=== PATIENT | male | born 1935 | race Caucasian/White ===

== ENCOUNTER 2017-01-05 15:20 | Outpatient (CLI) | payer MEDICARE | END 2017-01-05 15:21 | disposition home or self-care (01) | DX: R00.9 Unspecified abnormalities of heart beat (principal) ==

== ENCOUNTER 2017-02-14 06:38 | Day surgery (SDC) | payer MEDICARE ==
[~2017-02-14 06:38] MED LIST: PHENYLEPHRINE 2.5% OPHTH 2 ML DROPS ONE
[2017-02-14] MEDS ORDERED: KETOROLAC 0.45% OPHTH DROPS OPTH ONE (06:56)
[2017-02-14] MEDS ORDERED: CYCLOPENTOLATE 1% OPHTH DROPS 2 ML OPTH ONE (06:56)
[2017-02-14] MEDS ORDERED: PHENYLEPHRINE 2.5% OPHTH 2 ML DROPS OPTH ONE (06:56)
[2017-02-14] MEDS ORDERED: PROPARACAINE 0.5% OPHTH DROPS 15 ML OPTH ONE ×3 (06:56→08:22)
[2017-02-14] MEDS ORDERED: LACTATED RINGERS 500 ML IV ONE (06:59)
[2017-02-14] MEDS ORDERED: MIDAZOLAM 2 MG/2 ML VIAL IVP ONE (07:30)
[2017-02-14] MEDS ORDERED: CHONDR SULF/HYALURONATE SYRINGE IO ONE ×2 (07:47→08:22)
[2017-02-14] MEDS ORDERED: TIMOLOL 0.5% OPHTH DROPS OPTH ONE ×2 (07:47→08:22)
[2017-02-14] MEDS ORDERED: BRIMONIDINE 0.2% OPHTH DROPS 5 ML OPTH ONE ×2 (07:47→08:21)
[2017-02-14] MEDS ORDERED: EPINEPHrine 1 MG/ML AMP IVP ONE ×4 (07:47→08:22)
[2017-02-14] MEDS ORDERED: BSS/LIDOCAINE/EPINEPHRINE 1 ML SYRINGE IO ONE ×3 (07:48→08:23)
[2017-02-14] MEDS ORDERED: TRIAMCIN/MOXIFLOX/VANCO 1 ML VIAL IO ONE ×4 (07:48→08:22)
== END 2017-02-14 06:39 | disposition home or self-care (01) ==
PROC: 08RJ3JZ Replacement of Right Lens with Synthetic Substitute, Percutaneous Approach (ICD-10-PCS; principal; 2017-02-14 08:00)
DX: H25.811 Combined forms of age-related cataract, right eye (principal); I10 Essential (primary) hypertension; E78.5 Hyperlipidemia, unspecified; E07.9 Disorder of thyroid, unspecified
CPT/HCPCS: 66984; A9270; V2632

== ENCOUNTER 2020-12-27 11:16 | Outpatient (CLI) | payer MEDICARE | END 2020-12-27 11:17 | disposition short-term general hospital (02) | LOC: EMS 11:16 | DX: R00.2 Palpitations (principal); R00.0 Tachycardia, unspecified | CPT/HCPCS: A0425; A0427 ==

== ENCOUNTER 2022-07-16 15:06 | Emergency (ER) | payer MEDICARE ==
[2022-07-16 15:37] LABS: BASOPHILS % (AUTO) 0.5 %; EOSINOPHILS % (AUTO) 0.4 %; HCT - HEMATOCRIT 43.6 % (42.0-52.0); HGB - HEMOGLOBIN 14.9 g/dL (14.0-18.0); LYMPHOCYTES # (AUTO) 1.2 10^3/uL (1.5-3.5); LYMPHOCYTES % (AUTO) 14.6 %; MEAN CORPUSCULAR HGB CONC 34.2 g/dL (32.0-36.0); MEAN CORPUSCULAR VOLUME 87.9 fL (80.0-94.0); MEAN PLATELET VOLUME 10.3 fL (7.4-11.4); MONOCYTES # (AUTO) 0.7 10^3/uL (0.0-1.0); MONOCYTES % (AUTO) 8.2 %; NEUTROPHILS # (AUTO) 6.2 10^3/uL (1.5-6.6); NEUTROPHILS % (AUTO) 76.1 %; PLT - PLATELET COUNT 238 10^3/uL (130-450); RED BLOOD COUNT 4.96 10^6/uL (4.70-6.10); RED CELL DISTRIBUTION WIDTH 13.4 % (12.0-15.0); WHITE BLOOD COUNT 8.1 x10^3/uL (4.8-10.8)
[2022-07-16] MEDS ORDERED: PROPOFOL 200 MG/20 ML VIAL IVP STA (15:42)
[2022-07-16] MEDS ORDERED: SODIUM CHLORIDE 0.9% 1,000 ML IV STA (15:42)
--- NOTE | 2022-07-16 15:43 | ED Physician Documentation ---
History of Present Illness - Stated complaint Stated Complaint: RAPID HEART - Chief complaint Chief Complaint: Cardiac - History obtained from History obtained from: Patient - History of Present Illness Timing: Today Pain level max: 0 Pain level now: 0 - Additonal information Additional information: 86-year-old male presents to the emergency department with a rapid heart rate today. Has a history of atrial fibrillation. He went to the walk-in clinic and his heart rate was approximately 130. He took an extra dose of metoprolol earlier today. He states his heart rate is still elevated. No chest pain. No shortness of breath. No nausea or vomiting. No abdominal pain. Otherwise asymptomatic. Patient is on Eliquis. Review of Systems Ten Systems: 10 systems reviewed and negative Constitutional: denies: Fever, Chills Throat: denies: Sore throat Cardiac: denies: Chest pain / pressure Respiratory: denies: Dyspnea, Cough GI: denies: Nausea, Vomiting, Diarrhea Skin: denies: Rash Musculoskeletal: denies: Neck pain, Back pain Neurologic: denies: Headache PD PAST MEDICAL HISTORY - Past Medical History Past Medical History: Yes Cardiovascular: Hypertension, Arrhythmia Respiratory: None Endocrine/Autoimmune: HyPOthyroidism GI: None : Benign prostate hypertrophy HEENT: Chronic vision loss Psych: None Musculoskeletal: Osteoarthritis Derm: None - Past Surgical History General: Appendectomy, Other Neuro: Other HEENT: Cataracts - Present Medications Home Medications: Ambulatory Orders Medication Instructions Recorded Confirmed Cyanocobalamin (Vitamin B-12) 1,000 mcg PO DAILY 02/13/17 02/14/17 [Vitamin B-12] Doxazosin [Cardura] 12 mg PO DAILY 02/13/17 02/14/17 Finasteride [Proscar] 5 mg PO DAILY 02/13/17 02/14/17 Levothyroxine [Synthroid] 100 mcg PO QDAC 02/13/17 02/14/17 Lisinopril [Zestril] 2.5 mg PO DAILY 02/13/17 02/14/17 Multivit-Min/FA/Lycopen/Lutein 1 tab PO DAILY 02/13/17 02/14/17 [Centrum Silver Men Tablet] Potassium Chloride [Micro-K] 10 meq PO DAILY 02/13/17 02/14/17 hydroCHLOROthiazide 25 mg PO DAILY 02/13/17 02/14/17 [Hydrochlorothiazide] - Allergies Allergies/Adverse Reactions: Allergies Allergy/AdvReac Type Severity Reaction Status Date / Time Sulfa (Sulfonamide Allergy Rash Verified 07/16/22 15:23 Antibiotics) - Social History Does the pt smoke?: No Smoking Status: Never smoker PD ED PE NORMAL - Vitals Vital signs reviewed: Yes - General General: Alert and oriented X 3, No acute distress - HEENT HEENT: Moist mucous membranes - Neck Neck: Supple, no meningeal sign - Cardiac Cardiac: Other (irregular, tachycardic) - Respiratory Respiratory: No respiratory distress, Clear bilaterally - Abdomen Abdomen: Soft, Non tender, Non distended - Derm Derm: Warm and dry - Extremities Extremities: No edema, No calf tenderness / cord - Neuro Neuro: Alert and oriented X 3 - Psych Psych: Normal mood, Normal affect Results - Vitals Vitals: Vital Signs - 24 hr 07/16/22 07/16/22 07/16/22 15:19 15:23 15:53 Temperature 35.8 C L 36.5 C Heart Rate 138 H 138 H 88 Respiratory 20 20 16 Rate Blood Pressure 87/66 L 87/66 L 145/99 H O2 Saturation 96 96 95 If not protocol 1 : Oxygen Flow, liters/minute 07/16/22 07/16/22 15:59 16:21 Temperature 36.5 C Heart Rate 130 H 83 Respiratory 18 14 Rate Blood Pressure 104/76 145/90 H O2 Saturation 97 98 If not protocol : Oxygen Flow, liters/minute Oxygen O2 Source Room air - EKG (time done) 1602 Rate: Rate (enter#) (87) Rhythm: NSR [place]: Normal Intervals: Normal RI QRS: Normal Ischemia: Non specific changes 1509 Rate: Rate (enter#) (134) Rhythm: Atrial fibrillation (RVR) QRS: Normal Ischemia: Non specific changes - Labs Labs: Laboratory Tests 07/16/22 07/16/22 15:28 15:28 WBC 8.1 RBC 4.96 Hgb 14.9 Hct 43.6 MCV 87.9 MCH 30.0 MCHC 34.2 RDW 13.4 Plt Count 238 MPV 10.3 Neut # (Auto) 6.2 Lymph # (Auto) 1.2 L [place] # (Auto) 0.7 Eos # (Auto) 0.0 Baso # (Auto) 0.0 Absolute Nucleated RBC 0.00 Nucleated RBC % 0.0 Sodium 134 L Potassium 3.7 Chloride 100 L Carbon Dioxide 24 Anion Gap 10.0 BUN 23 H Creatinine 1.0 Estimated GFR (MDRD) 71 L Glucose 126 H Calcium 9.1 Total Bilirubin 0.9 AST 25 ALT 19 Alkaline Phosphatase 49 Total Protein 7.1 Albumin 4.2 Globulin 2.9 Albumin/Globulin Ratio 1.4 Lipase 29 Procedures - Procedural sedation Sedation prep: Informed consent, Time out completed, Last meal (4 hours VENEREAL DISEASE CONTROL HEAD), ASA 2 - mild disease, IV O2 monitor, ET CO2 monitor, RT present Sedation Medications: propofol (80 mg total) Mallampati classification: II Patient status during sedation: Drowsy, Vitals remained stable, Maintained airway, Recovered uneventfully Sedation recovery: Recovered uneventfully, Back to baseline Time in sedation (Minutes): 20 - Cardioversion 1 Time of attempt: 16:00 Indication: Tachyarrhythmia, Hypotension Risks, benefits, alternatives explained to: Pt Prep: IV, O2, residential monitor, Pulse ox (End-tidal CO2), Airway equip CS via: Pads, AP approach Sync: Biphasic, 100j Post cardioversion rhythm: NSR Complications: Other (None) Performed by: ED MD MEDICAL DECISION MAKING - ED course Complexity details: reviewed results, re-evaluated patient, considered differential, d/w patient ED course: Patient with asymptomatic atrial fibrillation with rapid ventricular response. He is anticoagulated at baseline. He is asymptomatic here, was initially hypotensive. Patient elected to have electrical cardioversion performed. Propofol was given. Synchronized cardioversion was done x1. Patient into sinus rhythm. Fully asymptomatic. We will have the patient follow-up with his doctor for further care. Patient counseled regarding signs and symptoms for which I believe and urgent re-evaluation would be necessary. Patient with good understanding of and agreement to plan and is comfortable going home at this time This document was made in part using voice recognition software. While efforts are made to proofread this document, sound alike and grammatical errors may occur. Departure - Departure Disposition: 01 Home, Self Care Clinical Impression: Atrial fibrillation with RVR Condition: Good Instructions: ED Afib, ED Cardioversion Electrical Follow-Up: your,science faculty member this week [Other] Comments: Please contact your science faculty member to let them know that you were in atrial fibrillation with rapid ventricular response and were cardioverted back into sinus rhythm. Contact them to see if they would like to make any medication adjustments. Please return if you worsen. Continue your current medications at home. Discharge Date/Time: 07/16/22 16:24
[2022-07-16 15:52] LABS: ALBUMIN 4.2 g/dL (3.2-5.5); ALBUMIN/GLOBULIN RATIO 1.4 (1.0-2.2); BILIRUBIN,TOTAL 0.9 mg/dL (0.2-1.0); CALCIUM 9.1 mg/dL (8.5-10.3); POTASSIUM 3.7 mmol/L (3.5-5.0); TOTAL PROTEIN 7.1 g/dL (6.7-8.2)
[2022-07-16 16:22] VITALS: BP 145/90
== END 2022-07-16 16:24 | disposition home or self-care (01) ==
LOC: ED 15:06
DX: I48.20 Chronic atrial fibrillation, unspecified (principal); Z79.01 Long term (current) use of anticoagulants; I10 Essential (primary) hypertension
CPT/HCPCS: 36415; 80053; 83690; 84484; 85025; 92960; 93005; 99152; 99284

== ENCOUNTER 2022-09-19 12:56 | Outpatient (CLI) | payer MEDICARE ==
[2022-09-19 14:22] LABS: BASOPHILS # (AUTO) 0.1 10^3/uL (0.0-0.1); BASOPHILS % (AUTO) 0.8 %; EOSINOPHILS # (AUTO) 0.1 10^3/uL (0.0-0.7); EOSINOPHILS % (AUTO) 1.8 %; HCT - HEMATOCRIT 42.7 % (42.0-52.0); HGB - HEMOGLOBIN 13.9 g/dL (14.0-18.0); LYMPHOCYTES # (AUTO) 1.5 10^3/uL (1.5-3.5); LYMPHOCYTES % (AUTO) 20.5 %; MEAN CORPUSCULAR HEMOGLOBIN 29.3 pg (27.0-31.0); MEAN CORPUSCULAR HGB CONC 32.6 g/dL (32.0-36.0); MEAN CORPUSCULAR VOLUME 90.1 fL (80.0-94.0); MEAN PLATELET VOLUME 10.7 fL (7.4-11.4); MONOCYTES # (AUTO) 0.7 10^3/uL (0.0-1.0); MONOCYTES % (AUTO) 10.3 %; NEUTROPHILS # (AUTO) 4.7 10^3/uL (1.5-6.6); NEUTROPHILS % (AUTO) 66.3 %; PLT - PLATELET COUNT 223 10^3/uL (130-450); RED BLOOD COUNT 4.74 10^6/uL (4.70-6.10); WHITE BLOOD COUNT 7.1 x10^3/uL (4.8-10.8)
[2022-09-19 14:34] LABS: INR 1.2 (0.8-1.2); PT - PROTHROMBIN TIME 13.3 secs (9.9-12.6)
[2022-09-19 14:35] LABS: CALCIUM 9.2 mg/dL (8.5-10.3)
== END 2022-09-19 12:57 | disposition home or self-care (01) ==
LOC: LAB.S 12:56
PROVIDERS: ATTEND Internal Medicine
DX: I48.3 Typical atrial flutter (principal)
CPT/HCPCS: 36415; 80048; 85025; 85610

== ENCOUNTER 2023-07-16 11:34 | Outpatient (CLI) | payer MEDICARE | END 2023-07-16 11:35 | disposition home or self-care (01) | LOC: LAB 11:34 | PROVIDERS: ATTEND Ophthalmology | DX: H54.7 Unspecified visual loss (principal) | CPT/HCPCS: 36415; 82565; 84520 ==

== ENCOUNTER 2023-07-16 11:35 | Outpatient (CLI) | payer MEDICARE ==
[2023-07-16] MEDS ORDERED: GADOTERATE MEGLUMINE 5 MMOL/10 ML VIAL ONE (12:18)
[2023-07-16] MEDS ORDERED: GADOTERATE MEGLUMINE 10 MMOL/20 ML VIAL ONE (12:18)
[2023-07-16] MEDS ORDERED: GADOTERATE MEGLUMINE 5 MMOL/10 ML VIAL IVP ONE (17:36)
[2023-07-16] MEDS ORDERED: GADOTERATE MEGLUMINE 10 MMOL/20 ML VIAL IVP ONE (17:36)
--- NOTE | 2023-07-16 18:50 | MRI Report ---
PROCEDURE: BRAIN W/WO INDICATIONS: VF LOSS CONTRAST: clariscan 22ml TECHNIQUE: Noncontrast sagittal and axial FLAIR, axial gradient echo, axial diffusion and ADC through the brain. Thin-slice sagittal and coronal T1 spin echo, coronal T2 fast spin echo through the pituitary. Aft er the administration contrast, optional dynamic coronal T1 spin echo, thin-slice coronal and sagitta l T1 spin echo images through the pituitary fossa; axial T1 spin echo with fat saturation through the brain. COMPARISON: None. FINDINGS: Image quality: Excellent. Pituitary Gland: There is a pituitary mass seen, which is mildly hyperintense on T2-weighted imaging . On postcontrast imaging, there is irregular, heterogeneous enhancement seen. This mass measures 3.5 cm craniocaudal by 2.8 cm AP, with a transverse extent of 2.5 cm. There is associated mass effect se en, with splaying of the cavernous portions of the internal carotid arteries. There is mass effect up on the cavernous sinus, which is raised superiorly. There is mass effect upon the ventral forebrain. CSF Spaces: Ventricles are normal in size and shape. Basal cisterns are patent. No extra-axial flu id collections. Brain: No intracranial bleeds. Hancock-white matter interface is intact. Diffusion weighted images de monstrate no acute ischemic insults. Brainstem is normal. Normal intravascular flow voids are prese nt. Skull and face: Calvarial marrow is normal in signal. Orbits appear normal. Sinuses: Sinuses and mastoids are clear. IMPRESSION: Enhancing 3.5 cm mass seen involving the pituitary, with associated mass effect, includi ng upon the optic chiasm, which is deviated superiorly, which is consistent with the given clinical h istory of visual field loss. 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 No additional intracranial masses are seen. Reviewed by: Nathan Bryan MD on 07/16/2023 5:49 PM [facility] Approved by: Nathan Bryan MD on 07/16/2023 5:49 PM [facility] Station ID: [id number]
== END 2023-07-16 11:36 | disposition home or self-care (01) ==
LOC: DI 11:35
PROVIDERS: ATTEND Ophthalmology
DX: E23.6 Other disorders of pituitary gland (principal); H53.453 Other localized visual field defect, bilateral
CPT/HCPCS: 36415; 70553; 82565; 84520; A9575

== ENCOUNTER 2023-07-21 21:57 | Emergency (ER) | payer MEDICARE ==
[2023-07-21] MEDS ORDERED: DEXAMETHASONE 10 MG/ML VIAL IVP STA (22:18)
[2023-07-21] MEDS ORDERED: FAMOTIDINE 20 MG/2 ML VIAL IVP STA (22:18)
[2023-07-21] MEDS ORDERED: diphenhydrAMINE INJ 50 MG/ML VIAL IVP STA (22:18)
[2023-07-21] MEDS ORDERED: TRANEXAMIC ACID 1,000 MG in SODIUM CHLORIDE 0.9% 100ML 100 ML IV STA (22:23)
[2023-07-21] MEDS ORDERED: diphenhydrAMINE INJ 50 MG/ML VIAL ONE (22:31)
[2023-07-21] MEDS ORDERED: DEXAMETHASONE 10 MG/ML VIAL ONE (22:31)
[2023-07-21] MEDS ORDERED: FAMOTIDINE 20 MG/2 ML VIAL IVP ONE (22:32)
--- NOTE | 2023-07-21 22:44 | ED Physician Documentation ---
History of Present Illness - Stated complaint Stated Complaint: TOUNGE SWELLING - Chief complaint Chief Complaint: Heent - History obtained from History obtained from: Patient - Additonal information Additional information: Patient is an 87-year-old male presenting for evaluation of tongue swelling that started approximately at 6:30PM. He is on multiple medications including lisinopril. He states that his swelling has started to improve on the drive over here and that his tongue was more swollen before and touching the sides of his mouth earlier. He does report having some trouble with swallowing. Denies a prior history of similar symptoms. No chest pain, shortness of air, fevers or recent illness.He reports eating tuna fish the last few days which is not something he usually eats. Review of Systems Constitutional: denies: Fever Cardiac: denies: Chest pain / pressure Respiratory: denies: Dyspnea GI: denies: Abdominal Pain PD PAST MEDICAL HISTORY - Past Medical History Cardiovascular: Hypertension, Arrhythmia Respiratory: None Endocrine/Autoimmune: HyPOthyroidism GI: None : Benign prostate hypertrophy HEENT: Chronic vision loss Psych: None Musculoskeletal: Osteoarthritis Derm: None - Past Surgical History General: Appendectomy, Other Neuro: Other HEENT: Cataracts - Present Medications Home Medications: Ambulatory Orders Medication Instructions Recorded Confirmed Cyanocobalamin (Vitamin B-12) 1,000 mcg PO DAILY 02/13/17 07/21/23 [Vitamin B-12] Doxazosin [Cardura] 12 mg PO DAILY 02/13/17 07/21/23 Finasteride [Proscar] 5 mg PO DAILY 02/13/17 07/21/23 Levothyroxine [Synthroid] 100 mcg PO QDAC 02/13/17 07/21/23 Lisinopril [Zestril] 2.5 mg PO DAILY 02/13/17 07/21/23 Mv-Min/Folic/K1/Lycopen/Lutein 1 tab PO DAILY 02/13/17 07/21/23 [Centrum Silver Men Tablet] Potassium Chloride [Micro-K] 10 meq PO DAILY 02/13/17 07/21/23 hydroCHLOROthiazide 25 mg PO DAILY 02/13/17 07/21/23 [Hydrochlorothiazide] - Allergies Allergies/Adverse Reactions: Allergies Allergy/AdvReac Type Severity Reaction Status Date / Time Sulfa (Sulfonamide Allergy Rash Verified 07/21/23 22:12 Antibiotics) lisinopril AdvReac Edema Verified 07/22/23 00:24 - Social History Does the pt smoke?: No Smoking Status: Never smoker PD ED PE NORMAL - General General: Alert and oriented X 3, No acute distress, Well developed/nourished - HEENT HEENT: Atraumatic, Moist mucous membranes, Other (Tongue swelling, no uvular edema, no lip swelling, Mallampati of 3) - Neck Neck: Supple, no meningeal sign - Cardiac Cardiac: RRR, No murmur - Respiratory Respiratory: No respiratory distress, Clear bilaterally Results - Vitals Vitals: Vital Signs - 24 hr 07/21/23 07/21/23 07/21/23 22:09 22:25 22:30 Temperature 36.5 C Heart Rate 78 67 69 Respiratory 16 17 18 Rate Blood Pressure 118/72 146/83 H 150/80 H O2 Saturation 95 95 96 07/21/23 07/21/23 07/21/23 22:46 23:26 23:30 Temperature Heart Rate 67 66 66 Respiratory 14 18 13 Rate Blood Pressure 150/80 H 149/89 H 141/76 H O2 Saturation 97 96 96 07/22/23 07/22/23 00:00 00:30 Temperature Heart Rate 66 68 Respiratory 14 17 Rate Blood Pressure 141/74 H 125/85 H O2 Saturation 96 94 Oxygen O2 Source Room air PD Medical Decision Making - ED course Complexity details: re-evaluated patient, d/w patient, d/w family ED course: Patient is an 87-year-old male presenting for evaluation of tongue swelling and difficulty with swallowing. He reports his symptoms have improved since onset. He is on an GRACE inhibitor. Vital signs are stable. No drooling. He is tolerating his secretions. IV was placed and patient was given Decadron, Benadryl and Pepcid along with TXA. He was observed for several hours with marked improvement in his symptoms. He is speaking clearly and is swallowing without any difficulty and swelling has significantly reduced to where there is minimal swelling present. Patient is eager to go home. We have added lisinopril to his allergy list and given very clear directions to no longer take this medication. Patient also counseled on the need for close follow-up with his primary care and advised on strict return precautions for any worsening symptoms. 2315 - Patient feeling better. On exam, tongue seems to be decreasing in size. Feels that he is able to swallow easier. His speech is becoming more clear. 1210 - Patient again reports continued improvement. states that his speech is back to normal. Patient states he is ready to go home. Discussed we will continue to observe him for a bit longer. Departure - Departure Disposition: 01 Home, Self Care Clinical Impression: Angioedema Condition: Stable Instructions: ED Angioedema Follow-Up: MAGALY DE LA CRUZ PA [Primary Care Provider] - Comments: STOP TAKING THE BLOOD PRESSURE MEDICATION CALLED LISINOPRIL. You were treated for a condition called angioedema. This is an allergic like process and can be caused by a number of things. My concern is that one of your blood pressure medications could have caused this reaction tonight. Please do not take any further doses of lisinopril. I have added this medication to your allergy list here. Please call your primary care doctor in the morning to notify them that you need a follow-up appointment and had this reaction today and that we are concerned it could be related to lisinopril. Return to the emergency department or call 911 with any worsening symptoms such as increased swelling, trouble swallowing or speaking or difficulty breathing. STOP TAKING THE BLOOD PRESSURE MEDICATION CALLED LISINOPRIL. Forms: PCP List Discharge Date/Time: 07/22/23 01:01
[2023-07-21] MEDS ORDERED: TRANEXAMIC ACID 1,000 MG/10 ML VIAL ONE (22:48)
[2023-07-22 00:55] VITALS: BP 125/85; O2SAT 94
== END 2023-07-22 01:01 | disposition home or self-care (01) ==
LOC: ED 21:57
DX: T78.3XXA Angioneurotic edema, initial encounter (principal); R13.10 Dysphagia, unspecified; I10 Essential (primary) hypertension
CPT/HCPCS: 96374; 96375; 99284; J1200

== ENCOUNTER 2024-01-20 09:48 | Outpatient (CLI) | payer MEDICARE ==
[2024-01-20 14:50] LABS: CALCIUM 9.4 mg/dL (8.5-10.3); CREATININE 0.9 mg/dL (0.6-1.3); POTASSIUM 3.7 mmol/L (3.5-4.5)
== END 2024-01-20 09:49 | disposition home or self-care (01) ==
LOC: LAB.S 09:48
PROVIDERS: ATTEND Nurse Practitioner Family
DX: D49.7 Neoplasm of unspecified behavior of endocrine glands and other parts of nervous system (principal)
CPT/HCPCS: 36415; 80048

== ENCOUNTER 2024-02-07 13:43 | Outpatient (CLI) | payer MEDICARE ==
[~2024-02-07 13:43] MED LIST changes: +GADOTERATE MEGLUMINE 10 MMOL/20 ML VIAL ONE; +GADOTERATE MEGLUMINE 5 MMOL/10 ML VIAL ONE; -PHENYLEPHRINE 2.5% OPHTH 2 ML DROPS ONE
[2024-02-07] MEDS: GADOTERATE MEGLUMINE 10 MMOL/20 ML VIAL IVP ONE (15:00)
--- NOTE | 2024-02-07 18:52 | MRI Report ---
PROCEDURE: Brain W/WO INDICATIONS: PITUITARY TUMOR CONTRAST: CLARICAN 22.6 ML TECHNIQUE: Noncontrast sagittal and axial FLAIR, axial gradient echo, axial diffusion and ADC through the brain. Thin-slice sagittal and coronal T1 spin echo, coronal T2 fast spin echo through the pituitary. Aft er the administration contrast, optional dynamic coronal T1 spin echo, thin-slice coronal and sagitta l T1 spin echo images through the pituitary fossa; axial T1 spin echo with fat saturation through the brain. COMPARISON: None. FINDINGS: Image quality: Excellent. Pituitary Gland: There is a mass again seen within the pituitary fossa, measuring 3.5 cm craniocauda l by 2.8 cm AP, with a transverse extent of 2.6 cm. This mass measures about significantly changed on the current study than on the prior. There is associated mass effect upon the cavernous sinuses, wit h the intracranial internal carotid arteries mildly splayed laterally. There is mass effect upon the optic chiasm, which is bowed superiorly. This mass demonstrates a "snowman" configuration. CSF Spaces: Ventricles are normal in size and shape. Basal cisterns are patent. No extra-axial flu id collections. Brain: No intracranial bleeds or mass effects. No abnormal intracranial enhancement. Hancock-white ma tter interface is intact. Diffusion weighted images demonstrate no acute ischemic insults. Brainste m is normal. Normal intravascular flow voids are present. Skull and face: Calvarial marrow is normal in signal. Orbits appear normal. Sinuses: Sinuses and mastoids are clear. IMPRESSION: Pituitary mass again seen, with strong suspicion for a pituitary macroadenoma. No signif icant change compared to the prior examination. Mass effect is seen upon the optic chiasm. There was previously given a history of visual field defec ts. Reviewed by: Nathan Bryan MD on 02/07/2024 5:50 PM [facility] Approved by: Nathan Bryan MD on 02/07/2024 5:50 PM AKDT Station ID: [id number]
== END 2024-02-07 13:44 | disposition home or self-care (01) ==
LOC: DI 13:43
PROVIDERS: ATTEND Neurological Surgery
DX: D49.7 Neoplasm of unspecified behavior of endocrine glands and other parts of nervous system (principal)
CPT/HCPCS: 70553; A9575

== ENCOUNTER 2024-03-28 14:08 | Outpatient (CLI) | payer MEDICARE | END 2024-03-28 23:59 | disposition critical access hospital (66) | LOC: EMS 14:08 | PROVIDERS: ATTEND Emergency Medicine | DX: I48.91 Unspecified atrial fibrillation (principal) | CPT/HCPCS: A0425; A0429 ==

== ENCOUNTER 2024-03-28 14:43 | Emergency (ER) | payer MEDICARE ==
[2024-03-28 14:59] VITALS: O2SAT 97
--- NOTE | 2024-03-28 14:59 | ED Physician Documentation ---
PD HPI CHEST PAIN - Stated complaint Stated Complaint: AFIB - History obtained from History obtained from: Patient, EMS - History of Present Illness Timing - onset: Today (few hours ago, had onset of fluttering in chest c/w atrial fib. Took extra Metoprolol when it was not slowing/converting as it typically does after few minutes. Still going faster so called EMS. They noted it to change from atril fib 130s to slower rate 60-70 enroute. Pt without chest pain per se.) Timing - duration: Hours Timing - details: Abrupt onset, Now resolved Quality: Other (fluttering feeling.). No: Pressure, Tightness Location: Left chest Associated symptoms: Feeling faint / dizzy, Palpitations Similar symptoms before: Diagnosis (parasoysmal atrial fib.) Review of Systems Constitutional: denies: Fever, Chills Nose: denies: Rhinorrhea / runny nose, Congestion Throat: denies: Sore throat Respiratory: denies: Cough GI: denies: Vomiting, Diarrhea PD PAST MEDICAL HISTORY - Past Medical History Cardiovascular: Hypertension, Arrhythmia Respiratory: None Endocrine/Autoimmune: HyPOthyroidism GI: None : Benign prostate hypertrophy HEENT: Chronic vision loss Psych: None Musculoskeletal: Osteoarthritis Derm: None - Past Surgical History Past Surgical History: Yes General: Appendectomy, Other Neuro: Other HEENT: Cataracts - Present Medications Home Medications: Ambulatory Orders Medication Instructions Recorded Confirmed Cyanocobalamin (Vitamin B-12) 1,000 mcg PO DAILY 02/13/17 07/21/23 [Vitamin B-12] Doxazosin [Cardura] 12 mg PO DAILY 02/13/17 07/21/23 Finasteride [Proscar] 5 mg PO DAILY 02/13/17 07/21/23 Levothyroxine [Synthroid] 100 mcg PO QDAC 02/13/17 07/21/23 Lisinopril [Zestril] 2.5 mg PO DAILY 02/13/17 07/21/23 Mv-Min/Folic/K1/Lycopen/Lutein 1 tab PO DAILY 02/13/17 07/21/23 [Centrum Silver Men Tablet] Potassium Chloride [Micro-K] 10 meq PO DAILY 02/13/17 07/21/23 hydroCHLOROthiazide 25 mg PO DAILY 02/13/17 07/21/23 [Hydrochlorothiazide] - Allergies Allergies/Adverse Reactions: Allergies Allergy/AdvReac Type Severity Reaction Status Date / Time Sulfa (Sulfonamide Allergy Rash Verified 07/21/23 22:12 Antibiotics) lisinopril AdvReac Edema Verified 07/22/23 00:24 - Social History Does the pt smoke?: No Smoking Status: Never smoker Does the pt drink ETOH?: No Does the pt have substance abuse?: No - Immunizations Immunizations are current?: Yes - POLST Patient has POLST: No PD ED PE NORMAL - Vitals Vital signs reviewed: Yes - General General: Alert and oriented X 3, No acute distress, Well developed/nourished - Neck Neck: Supple, no meningeal sign, No adenopathy - Cardiac Cardiac: No murmur. No: RRR (irregular feeling with rate 80s, but monitor shows NSR with PACs/PVCs and not fib. ) - Respiratory Respiratory: No respiratory distress, Clear bilaterally Results - Vitals Vitals: Oxygen O2 Source Room air - EKG (time done) 14:51 EKG releavant findings:: EKG personally interpreted by author of this note. Relevant findings are: Rate: Rate (enter#) (70) Rhythm: NSR (with frequent PACs/PVCs.) [place]: Normal QRS: Normal Ischemia: No: ST elevation c/w ischemia, ST depression - Labs Labs: Laboratory Tests 03/28/24 03/28/24 15:05 15:05 WBC 6.0 RBC 4.76 Hgb 13.2 L Hct 40.7 L MCV 85.5 MCH 27.7 MCHC 32.4 RDW 14.1 Plt Count 248 MPV 9.6 Neut # (Auto) 4.3 Lymph # (Auto) 1.0 L [place] # (Auto) 0.7 Eos # (Auto) 0.1 Baso # (Auto) 0.1 Absolute Nucleated RBC 0.00 Nucleated RBC % 0.0 Sodium 138 Potassium 4.5 Chloride 104 Carbon Dioxide 27 Anion Gap 7.0 BUN 22 H Creatinine 1.1 Estimated GFR (MDRD) 63 L Glucose 152 H Calcium 9.3 Phosphorus 3.2 Magnesium 1.7 Total Bilirubin 0.4 AST 17 ALT 14 Alkaline Phosphatase 45 Total Protein 6.0 L Albumin 3.8 Globulin 2.2 Albumin/Globulin Ratio 1.7 Lipase 13 PD Medical Decision Making - ED course Complexity details: reviewed results (pt remains in sinus with ectopy. No atrial fib. Lytes are normal. Pt comfortable going home. ), considered differential (episodic atrial fib, which has converted to sinus enroute by EMS. Having PACs/PVCs so seems irregular now but has P waves on the regular rhythm part. Can check lytes to see if any irregular. ), d/w patient Departure - Departure Disposition: 01 Home, Self Care Clinical Impression: Paroxysmal atrial fibrillation Condition: Stable Record reviewed to determine appropriate education?: Yes Instructions: ED Paroxysmal Atrial Flutter Comments: The atrial fibrillation/flutter episode you had at home resolved en route and the medic ambulance. It regular rhythm sinus now with extra beats (PVCs). We did check blood test to look at your electrolytes and your potassium/magnesium/calcium/sodium are all good. Continue usual medications and treatments. Contact your analog circuit designer in the next day or 2 and see if they want to change your medicines at all but otherwise keeping on the regular ones at the moment. Forms: PCP List Discharge Date/Time: 03/28/24 16:11
[2024-03-28 15:10] LABS: BASOPHILS # (AUTO) 0.1 10^3/uL (0.0-0.1); BASOPHILS % (AUTO) 0.8 %; EOSINOPHILS # (AUTO) 0.1 10^3/uL (0.0-0.7); EOSINOPHILS % (AUTO) 1.2 %; HCT - HEMATOCRIT 40.7 % (42.0-52.0); HGB - HEMOGLOBIN 13.2 g/dL (14.0-18.0); LYMPHOCYTES % (AUTO) 15.9 %; MEAN CORPUSCULAR HEMOGLOBIN 27.7 pg (27.0-31.0); MEAN CORPUSCULAR HGB CONC 32.4 g/dL (32.0-36.0); MEAN CORPUSCULAR VOLUME 85.5 fL (80.0-94.0); MEAN PLATELET VOLUME 9.6 fL (7.4-11.4); MONOCYTES # (AUTO) 0.7 10^3/uL (0.0-1.0); MONOCYTES % (AUTO) 10.8 %; NEUTROPHILS # (AUTO) 4.3 10^3/uL (1.5-6.6); NEUTROPHILS % (AUTO) 70.8 %; PLT - PLATELET COUNT 248 10^3/uL (130-450); RED BLOOD COUNT 4.76 10^6/uL (4.70-6.10); RED CELL DISTRIBUTION WIDTH 14.1 % (12.0-15.0)
[2024-03-28 15:25] LABS: ALBUMIN 3.8 g/dL (3.2-5.5); ALBUMIN/GLOBULIN RATIO 1.7 (1.0-2.2); BILIRUBIN,TOTAL 0.4 mg/dL (0.2-1.0); CALCIUM 9.3 mg/dL (8.5-10.3); CREATININE 1.1 mg/dL (0.6-1.3); MAGNESIUM 1.7 mg/dL (1.7-2.3); PHOSPHORUS 3.2 mg/dL (2.5-5.0); POTASSIUM 4.5 mmol/L (3.5-4.5)
[2024-03-28 16:05] VITALS: BP 101/70
== END 2024-03-28 16:11 | disposition home or self-care (01) ==
LOC: ED 14:43
DX: I48.0 Paroxysmal atrial fibrillation (principal)
CPT/HCPCS: 36415; 80053; 83690; 83735; 84100; 85025; 93005; 99283; 99284